=== PATIENT | female | born 1990 | race Caucasian/White ===

== ENCOUNTER 2018-05-11 23:23 | Emergency (ER) | payer OTHER ==
[~2018-05-11] VITALS: Ht 162.6 cm; Wt 58.5 kg
[2018-05-11 23:30] VITALS: BP 119/68
--- NOTE | 2018-05-11 23:30 | NUR ---
PT DOM TO ED BED 4 FOR BEDSIDE TRIAGE, PER EMS FIRE CALLED [facility] PATIENT WAS FOUND OUTSIDE A [facility] STORE SOB THIS EVENING APPROX 1 HR AGO. ON ARRIVAL PT A/OX4, MARTINS, 98% ON RA. CLB WITH NO EVIDENCE OF LABORED BREATHING. DENIES CP OR SOB AT THIS TIME. AMBULATES WITH STEADY GAIT WITHOUT ASSISTANCE. HOOKED UP TO FULL MONITOR WILL CONTINUE TO WATCH CLOSELY. HX: CKD, DEPRESSION, METHAMPHETAMINE ABUSE MEDS: DEPOPROVERA
--- NOTE | 2018-05-11 23:41 | NUR ---
PT ON BED IN NAD ON MONITOR, URINE OBTAINED.
[2018-05-12] MEDS ORDERED: LORazepam 2 MG/ML VIAL IM/IVP ONE (00:25)
[2018-05-12] MEDS ORDERED: diphenhydrAMINE 50 MG/ML VIAL IM ONE (00:25)
[2018-05-12] MEDS ORDERED: HALOPERIDOL IM 5 MG/ML VIAL IM ONE (00:25)
--- NOTE | 2018-05-12 00:52 | NUR ---
PT RESTLESS IN BED, MEDICATION GIVEN PER MD. VITALS STABLE.
[2018-05-12 00:57] LABS: BASOPHILS % (AUTO) 0.3 % (0.0-2.0); EOSINOPHILS # (AUTO) 0.1 K/uL (0-0.4); HEMATOCRIT 36.4 % (36-48); HEMOGLOBIN 12.1 g/dL (12.0-16.0); LYMPHOCYTES # (AUTO) 1.7 K/uL (2.5-16.5); LYMPHOCYTES % (AUTO) 16.7 % (20.5-51.1); MEAN CORPUSCULAR HEMOGLOBIN 29 pg (27-31); MEAN CORPUSCULAR HGB CONC 33 g/dL (33-37); MEAN CORPUSCULAR VOLUME 87.9 fL (80-94); MONOCYTES # (AUTO) 1.1 K/uL (0.8-1.0); MONOCYTES % (AUTO) 10.8 % (1.7-9.3); NEUTROPHILS # (AUTO) 7.2 K/uL (1.8-7.7); NEUTROPHILS % (AUTO) 71.2 % (42.2-75.2); PLATELET COUNT (AUTO) 205 K/uL (140-450); RED BLOOD CELL COUNT(AUTO) 4.14 MIL/uL (4.20-5.40); RED CELL DISTRIBUTION WIDTH 13.4 % (11.6-13.7); WHITE BLOOD COUNT (AUTO) 10.2 K/uL (4.8-10.8)
[2018-05-12 01:21] LABS: ALBUMIN 3.7 g/dL (3.4-5.0); ANION GAP 9.6 (8-16); ASPARTATE AMINOTRANSFERASE 32 U/L (15-37); CARBON DIOXIDE 28.9 mmol/L (21-32); CHLORIDE 101 mmol/L (98-107); CREATININE 0.8 mg/dL (0.6-1.3); GFR ARICAN-AMERICAN 112 mL/min (>90); GLUCOSE 120 mg/dL (74-106); POTASSIUM 3.5 mmol/L (3.5-5.1); SODIUM SERUM 136 mmol/L (136-145); TOTAL BILIRUBIN 0.5 mg/dL (0.0-1.0); UREA NITROGEN, BLOOD 5 mg/dL (7-18)
[2018-05-12 01:22] LABS: BARBITURATE, URINE NEG. ng/ml (NEG <=200); BENZODIAZEPINE, URINE NEG. ng/mL (NEG <=200); CANNABINOID, URINE NEG. ng/mL (NEG <=50); COCAINE, URINE NEG. ng/mL (NEG <=300); OPIATE, URINE POS. ng/mL (NEG <=2000); PHENCYCLIDINE SCREEN,URINE NEG. ng/mL (NEG <=25)
[2018-05-12 01:39] LABS: CKMB RELATIVE INDEX 2.1 (0.0-2.5); CREATINE KINASE MB 8.8 ng/mL (0-3.6)
[2018-05-12 01:52] LABS: BLOOD, URINE LARGE (NEGATIVE); LEUKOCYTE ESTERASE ,URINE NEGATIVE (NEGATIVE); NITRITE, URINE NEGATIVE (NEGATIVE); UGLUCOSE NEGATIVE (NEGATIVE)
[2018-05-12 01:53] LABS: APPEARANCE,URINE CLOUDY (CLEAR); COLOR,URINE YELLOW (YELLOW)
[2018-05-12 01:57] LABS: BILIRUBIN,URINE SMALL (NEGATIVE); RBC,URINE TOO NUMEROUS TO COUN /HPF (0-5); WBC,URINE 0-5 (RARE) /HPF (0-5)
--- NOTE | 2018-05-12 02:30 | NUR ---
PT IS SLEEPING, VITALS STABLE
--- NOTE | 2018-05-12 05:58 | NUR ---
TRIED TO DC PT. PT WAS NOT EASY TO AROUSE. ROAD TEST FAILED. WAS NOT ABLE TO AMBULATE WITHOUT ASSISTANCE.
--- NOTE | 2018-05-12 07:23 | NUR ---
GAVE REPORT TO CHACE RN, PT VITALS STABLE.
--- NOTE | 2018-05-12 07:23 | NUR ---
REPORT RECEIVED FROM EDMUND HENDRICKS. PT ASLEEP ON [facility] AT THIS TIME W/ VSS, SAFETY PRECAUTIONS IN PLACE. WILL CONTINUE TO MONITOR.
--- NOTE | 2018-05-12 08:30 | NUR ---
PT ASLEEP ON [facility] AT THIS TIME W/ VSS, SAFETY PRECAUTIONS IN PLACE. WILL CONTINUE TO MONITOR.
--- NOTE | 2018-05-12 09:41 | NUR ---
PT ASLEEP ON [facility] AT THIS TIME W/ VSS, SAFETY PRECAUTIONS IN PLACE. WILL CONTINUE TO MONITOR.
--- NOTE | 2018-05-12 09:56 | NUR ---
pt is unable to remain awake long enough to verbalize discharge teaching. Pt appears lethargic, but is aaox4. bellows charger assembler and er md notified. will continue to re-evaluate pt.
--- NOTE | 2018-05-12 10:55 | NUR ---
PT CONTINUE TO SLEEP AT THIS TIME. WILL NOT REMAIN AWAKE LONG ENOUGH TO TEST GAIT. CHARGE NURSE NOTIFIED.
--- NOTE | 2018-05-12 11:30 | NUR ---
pt awake and eating at this time. pt needs met. safety precautions in place. will continue to monitor.
--- NOTE | 2018-05-12 11:56 | NUR ---
CHARGE NURSE AT THE BEDSIDE AT THIS TIME TO ASSIST IN ASSESSING PT GAIT AND ABILITY TO LEAVE ER. PT AWAKE AND AAOX4. RECEIEVD A BUS PASS PER PT REQUEST. PT HAS STEADY GAIT AT THIS TIME. PT IS INFORMED THAT IT IS TIME TO LEAVE ER. PT DEMONSTRATED UNDERSTANDING OF D/C TEACHING AND DECLINED HOMELESS RESOURCE PACKET.
[2018-05-12 12:25] VITALS: BP 126/88
--- NOTE | 2018-05-12 12:25 | NUR ---
Patient discharged with v/s stable. Written and verbal after care instructions given and explained. Patient verbalized understanding. Ambulatory with steady gait. All questions addressed prior to discharge. Advised to follow up with PMD. Pt given homeless resource packet but declines. Pt given snacks and a clean shirt.
== END 2018-05-12 14:48 | disposition home or self-care (01) ==
LOC: MED 23:23
DX: R41.82 Altered mental status, unspecified (principal); F43.9 Reaction to severe stress, unspecified
CPT/HCPCS: 36415; 80053; 80305; 81001; 81025; 82550; 82553; 82948; 85025; 96372; 96374; 99284; G0482; J1200; J1630; J2060

== ENCOUNTER 2018-10-02 11:58 | Emergency (ER) | payer OTHER ==
[~2018-10-02] VITALS: Ht 165.1 cm; Wt 43.1 kg
[2018-10-02 11:58] VITALS: BP 184/135
--- NOTE | 2018-10-02 12:00 | NUR ---
PT BIBA BLS TO BED 9
[2018-10-02] MEDS ORDERED: NACL 0.9% 1,000 ML IV ONE (12:46)
[2018-10-02] MEDS ORDERED: LORazepam 2 MG/ML VIAL IVP ONE (12:50)
[2018-10-02] MEDS ORDERED: diphenhydrAMINE 50 MG/ML VIAL IVP ONE (12:50)
--- NOTE | 2018-10-02 13:05 | NUR ---
PATIENT PRESENTS TO ED WITH brought in by ems from [facility] [place]---diane louiechurch called 911 when noticed pt laying on sidewalk--- no apparent injury/trauma noted, pt unable to stay still, twitching, rocking back and foward, clear excessive speech, will not answer questions at this time. pupils reactive and equal to light stimuli. ems reported pt requested [facility] . DENIES N/V/D; SKIN IS pale cool was had wet clothing; awake will not answer questions; repetitive raced speech ; LUNGS CLEAR BL; HR EVEN AND tachy; PT DENIES ANY FEVER, CP, SOB, OR COUGH AT THIS TIME; PATIENT STATES PAIN OF 0/10 AT THIS TIME; VSS; PATIENT POSITIONED FOR COMFORT; HOB ELEVATED; BEDRAILS UP X2; BED DOWN. ER MD MADE AWARE OF PT STATUS.
[2018-10-02 13:19] LABS: BASOPHILS # (AUTO) 0.1 K/uL (0.00-0.22); BASOPHILS % (AUTO) 0.5 % (0.0-2.0); EOSINOPHILS # (AUTO) 0.1 K/uL (0-0.4); HEMATOCRIT 42.7 % (36-48); HEMOGLOBIN 13.7 g/dL (12.0-16.0); LYMPHOCYTES # (AUTO) 3.8 K/uL (2.5-16.5); LYMPHOCYTES % (AUTO) 28.1 % (20.5-51.1); MEAN CORPUSCULAR HEMOGLOBIN 28 pg (27-31); MEAN CORPUSCULAR HGB CONC 32 g/dL (33-37); MEAN CORPUSCULAR VOLUME 87.5 fL (80-94); MONOCYTES # (AUTO) 0.7 K/uL (0.8-1.0); MONOCYTES % (AUTO) 4.9 % (1.7-9.3); NEUTROPHILS # (AUTO) 8.9 K/uL (1.8-7.7); NEUTROPHILS % (AUTO) 65.5 % (42.2-75.2); PLATELET COUNT (AUTO) 284 K/uL (140-450); RED BLOOD CELL COUNT(AUTO) 4.87 MIL/uL (4.20-5.40); RED CELL DISTRIBUTION WIDTH 14.7 % (11.6-13.7); WHITE BLOOD COUNT (AUTO) 13.6 K/uL (4.8-10.8)
[2018-10-02 13:28] LABS: BARBITURATE, URINE NEG. ng/ml (NEG <=200); BENZODIAZEPINE, URINE NEG. ng/mL (NEG <=200); CANNABINOID, URINE NEG. ng/mL (NEG <=50); COCAINE, URINE NEG. ng/mL (NEG <=300); OPIATE, URINE POS. ng/mL (NEG <=2000); PHENCYCLIDINE SCREEN,URINE NEG. ng/mL (NEG <=25)
[2018-10-02 13:30] LABS: CARBON DIOXIDE 30.8 mmol/L (21-32); CHLORIDE 103 mmol/L (98-107); CREATININE 0.9 mg/dL (0.6-1.3); GFR ARICAN-AMERICAN 97 mL/min (>90); GLUCOSE 121 mg/dL (74-106); POTASSIUM 3.8 mmol/L (3.5-5.1); SODIUM SERUM 143 mmol/L (136-145); UREA NITROGEN, BLOOD 14 mg/dL (7-18)
[2018-10-02 13:37] LABS: ALBUMIN 4.1 g/dL (3.4-5.0); ASPARTATE AMINOTRANSFERASE 35 U/L (15-37); TOTAL BILIRUBIN 0.6 mg/dL (0.0-1.0)
[2018-10-02 13:41] LABS: APPEARANCE,URINE CLEAR (CLEAR); BILIRUBIN,URINE NEGATIVE (NEGATIVE); BLOOD, URINE NEGATIVE (NEGATIVE); COLOR,URINE YELLOW (YELLOW); LEUKOCYTE ESTERASE ,URINE NEGATIVE (NEGATIVE); NITRITE, URINE NEGATIVE (NEGATIVE); UGLUCOSE NEGATIVE (NEGATIVE)
[2018-10-02 13:43] LABS: RBC,URINE 0-5 (RARE) /HPF (0-5); WBC,URINE 0-5 (RARE) /HPF (0-5)
--- NOTE | 2018-10-02 14:02 | NUR ---
PATIENT CONTINUES TO ATTEMPT TO LEAVE ER, TAKE OFF LEADS AND IV SALINE LOCK.
--- NOTE | 2018-10-02 15:13 | NUR ---
patient provided with food and juice and socks
--- NOTE | 2018-10-02 15:32 | NUR ---
patient provided with clothes, more food/juice, community resource packet.
--- NOTE | 2018-10-02 15:50 | NUR ---
patient exited er via steady gait.
--- NOTE | 2018-10-02 15:55 | NUR ---
PT LEFT WITHOUT DISCHARGE PAPERWORK AT THIS TIME
== END 2018-10-02 15:55 | disposition left against medical advice (07) ==
LOC: MED 11:58
DX: F19.10 Other psychoactive substance abuse, uncomplicated (principal); G24.09 Other drug induced dystonia; J45.909 Unspecified asthma, uncomplicated; I10 Essential (primary) hypertension; Z91.14 Patient's other noncompliance with medication regimen
CPT/HCPCS: 36415; 80053; 80305; 81001; 81025; 84484; 85025; 96361; 96374; 96375; 99283; G0482; J1200; J2060; J7030

== ENCOUNTER 2019-07-25 15:03 | Emergency (ER) | payer OTHER ==
[~2019-07-25] VITALS: Ht 157.5 cm; Wt 52.2 kg
--- NOTE | 2019-07-25 15:12 | NUR ---
ATTEMPTED TO TRIAGE PATIENT, PT LEFT FACILITY PRIOR TO BEING TRAIGED.
[2019-10-12] MEDS ORDERED: ASPI-1884 PO (15:05)
[2019-10-12] MEDS ORDERED: LOV40I SUBQ (15:05)
== END 2019-07-25 15:12 | disposition left against medical advice (07) ==
LOC: MED 15:03
DX: Z53.21 Procedure and treatment not carried out due to patient leaving prior to being seen by health care provider (principal)

== ENCOUNTER 2019-10-03 00:38 | Inpatient (IN) | payer MEDICAID, OTHER ==
[~2019-10-03] VITALS: Ht 160 cm; Wt 45.4 kg
[2019-10-03 00:52] VITALS: BP 163/100
--- NOTE | 2019-10-03 00:52 | NUR ---
28 Y/O FEMALEBIBA WITH REPORTS OF BEING FOUND ON THE STREET STATING SHE COULD NOT WALK OR STAND. STATE THE PAIN STARTS IN HER LEFT HIP AND GOES DOWN HER WHOLE LEG. PAIN OF 9/10.PATIENT ACTING IRRATICALLY DENIES DRUG USE. ERMD MADE AWARE OF STATUS. SIDE RAILSX1 PMH:ASTHMA RX:DENIES NKDA
[2019-10-03] MEDS ORDERED: IBUPROFEN 800 MG TAB PO ONE (01:00)
[2019-10-03] MEDS ORDERED: MORPHINE SULFATE 4 MG/ML SYR IVP ONE (01:50)
[2019-10-03] MEDS ORDERED: NACL 0.9% 1,000 ML IV ONE (01:50)
[2019-10-03] MEDS ORDERED: ONDANSETRON 4 MG/2 ML VIAL IVP ONE (01:50)
--- NOTE | 2019-10-03 02:00 | NUR ---
EMT PERFORMING EKG AT BEDSIDE.
[2019-10-03 02:12] LABS: BASOPHILS # (AUTO) 0.1 K/uL (0.00-0.22); BASOPHILS % (AUTO) 0.5 % (0.0-2.0); EOSINOPHILS # (AUTO) 0.1 K/uL (0-0.4); EOSINOPHILS % (AUTO) 0.9 % (0.0-4.0); HEMATOCRIT 37.1 % (36-48); HEMOGLOBIN 12.2 g/dL (12.0-16.0); LYMPHOCYTES # (AUTO) 1.4 K/uL (2.5-16.5); LYMPHOCYTES % (AUTO) 12.8 % (20.5-51.1); MEAN CORPUSCULAR HEMOGLOBIN 29 pg (27-31); MEAN CORPUSCULAR HGB CONC 33 g/dL (33-37); MEAN CORPUSCULAR VOLUME 88.4 fL (80-94); MONOCYTES # (AUTO) 0.6 K/uL (0.8-1.0); NEUTROPHILS # (AUTO) 8.6 K/uL (1.8-7.7); NEUTROPHILS % (AUTO) 79.8 % (42.2-75.2); PLATELET COUNT (AUTO) 293 K/uL (140-450); RED BLOOD CELL COUNT(AUTO) 4.19 MIL/uL (4.20-5.40); WHITE BLOOD COUNT (AUTO) 10.8 K/uL (4.8-10.8)
[2019-10-03] MEDS ORDERED: hydrALAZINE 20 MG/ML VIAL IVP ONE (02:20)
[2019-10-03 02:24] LABS: ANION GAP 14.5 (8-16); CARBON DIOXIDE 26.7 mmol/L (21-32); CHLORIDE 102 mmol/L (98-107); CREATININE 0.8 mg/dL (0.6-1.3); GFR ARICAN-AMERICAN 111 mL/min (>90); GLUCOSE 142 mg/dL (74-106); POTASSIUM 4.2 mmol/L (3.5-5.1); SODIUM SERUM 139 mmol/L (136-145); UREA NITROGEN, BLOOD 12 mg/dL (7-18)
[2019-10-03] MEDS ORDERED: MORPHINE SULFATE 2 MG/ML SYR IVP PRN (02:25)
[2019-10-03] MEDS ORDERED: ZOLPIDEM 5 MG TAB PO PRN (02:25)
[2019-10-03] MEDS ORDERED: ONDANSETRON 4 MG/2 ML VIAL IM/IVP PRN (02:25)
[2019-10-03] MEDS ORDERED: ACETAMINOPHEN 325 MG TAB PO PRN (02:25)
[2019-10-03] MEDS ORDERED: DOCUSATE SODIUM 100 MG GELCAP PO PRN (02:25)
[2019-10-03 02:29] LABS: ALBUMIN 3.6 g/dL (3.4-5.0); ASPARTATE AMINOTRANSFERASE 67 U/L (15-37); TOTAL BILIRUBIN 0.4 mg/dL (0.0-1.0)
[2019-10-03] MEDS ORDERED: ALBUTEROL SULFATE/IPRATROPIU 3 ML SOL IH PRN (02:35)
[2019-10-03 02:53] LABS: APPEARANCE,URINE CLOUDY (CLEAR); BILIRUBIN,URINE NEGATIVE (NEGATIVE); BLOOD, URINE NEGATIVE (NEGATIVE); COLOR,URINE YELLOW (YELLOW); LEUKOCYTE ESTERASE ,URINE NEGATIVE (NEGATIVE); NITRITE, URINE NEGATIVE (NEGATIVE); UGLUCOSE NEGATIVE (NEGATIVE)
[2019-10-03] MEDS ORDERED: fentaNYL 0.05 MG/HR PATCH TD SCH (03:05)
[2019-10-03 03:06] LABS: PROTHROMBIN TIME 9.2 secs (10.8-13.4)
[2019-10-03] MEDS ORDERED: fentaNYL 0.05 MG/ML VIAL IVP ONE (03:10)
[2019-10-03 03:12] LABS: BARBITURATE, URINE NEG. ng/ml (NEG <=200); BENZODIAZEPINE, URINE NEG. ng/mL (NEG <=200); CANNABINOID, URINE NEG. ng/mL (NEG <=50); COCAINE, URINE NEG. ng/mL (NEG <=300); OPIATE, URINE POS. ng/mL (NEG <=2000); PHENCYCLIDINE SCREEN,URINE NEG. ng/mL (NEG <=25)
--- NOTE | 2019-10-03 03:18 | NUR ---
PULLED SUBLIMAZE 2ML VIAL; WASTED 0.05MG/1ML WITH EDMUND CARRION. ADMINISTERED 0.05MG/1ML OF SUBLIMAZE TO PATIENT
[2019-10-03 03:35] VITALS: BP 143/87
--- NOTE | 2019-10-03 03:35 | NUR ---
RECEIVED BEDSIDE REPORT FROM ED NURSE JEROD. PATIENT ARRIVED VIA GURNEY. PATIENT IS NOT AMBULATORY. PATIENT IS AO 2-3. ON ROOM AIR. NO SOB OR DISTRESS NOTED. IV ACCESS ON LEFT FOREARM 20 GAUGE, PATENT AND INTACT. HERNANDEZ CATHETER IN PLACE. INITIAL ASSESSMENT DONE. INITIAL VITAL SIGNS TAKEN. MRSA SWAB DONE AND SENT TO LAB. BOARD UPDATED. CALL LIGHT WITHIN PATIENT REACH. WILL CONTINUE TO MONITOR PATIENT.
--- NOTE | 2019-10-03 03:35 | NUR ---
Admited to TELE. Will go to room 124-A. Belongings list completed. Report to EDMUND RUTHERFORD.
[2019-10-03 03:39] LABS: CHOL/HDL RATIO 3.1 (1-4.5); PHOSPHORUS 3.1 mg/dL (2.5-4.9); THYROID STIMULATING HORMONE 0.42 uIU/mL (0.34-3.74)
[2019-10-03] MEDS: NACL 0.9% 1,000 ML IV SCH (04:11)
[2019-10-03] MEDS: LORazepam 2 MG/ML VIAL IM/IVP PRN ×4 (04:11→20:57)
--- NOTE | 2019-10-03 04:17 | NUR ---
ATTEMPTED TO ASK PATIENT ADMISSION QUESTIONS. PATIENT WAS MUMBLING AND REPLYING YES TO ALL QUESTIONS BUT NOT ABLE TO JUSTIFY HER ANSWERS.
--- NOTE | 2019-10-03 07:19 | NUR ---
PATIENT IN STABLE CONDITION. CALL LIGHT WITHIN PATIENT REACH. WILL ENDORSE TO AM SHIFT NURSE FOR CONTINUITY OF CARE.
--- NOTE | 2019-10-03 07:20 | NUR ---
RECEIVED BEDSIDE REPORT FROM SHOPPER NURSE. PATIENT IS AWAKE, ALERT AND ORIENTEDX1. NO SIGNS OF DISTRESS ON RA. SKIN IS INTACT. IV ON L WRIST 22G. CLEAN, DRY AND INTACT. TELE MONITOR IN PLACE. HERNANDEZ CATH IN PLACE. BED IN LOW POSITION. CALL LIGHT WITHIN REACH. WILL CONTINUE TO MONITOR
[2019-10-03 08:00] VITALS: BP 138/93
[2019-10-03 08:00] LABS: BASOPHILS # (AUTO) 0.1 K/uL (0.00-0.22); BASOPHILS % (AUTO) 0.7 % (0.0-2.0); EOSINOPHILS # (AUTO) 0.1 K/uL (0-0.4); EOSINOPHILS % (AUTO) 0.6 % (0.0-4.0); HEMATOCRIT 38.4 % (36-48); HEMOGLOBIN 12.6 g/dL (12.0-16.0); LYMPHOCYTES # (AUTO) 1.8 K/uL (2.5-16.5); LYMPHOCYTES % (AUTO) 16.3 % (20.5-51.1); MEAN CORPUSCULAR HEMOGLOBIN 29 pg (27-31); MEAN CORPUSCULAR HGB CONC 33 g/dL (33-37); MEAN CORPUSCULAR VOLUME 87.8 fL (80-94); MONOCYTES # (AUTO) 0.9 K/uL (0.8-1.0); MONOCYTES % (AUTO) 8.2 % (1.7-9.3); NEUTROPHILS # (AUTO) 8.4 K/uL (1.8-7.7); NEUTROPHILS % (AUTO) 74.2 % (42.2-75.2); PLATELET COUNT (AUTO) 296 K/uL (140-450); RED BLOOD CELL COUNT(AUTO) 4.37 MIL/uL (4.20-5.40); RED CELL DISTRIBUTION WIDTH 16.6 % (11.6-13.7); WHITE BLOOD COUNT (AUTO) 11.3 K/uL (4.8-10.8)
--- NOTE | 2019-10-03 08:30 | NUR ---
ADMINISTERED MEDS AND PRN PAIN MED. PATIENT TOLERATED WELL. EDUCATED ON SIDE EFFECTS. NO SIGNS OF DISTRESS. WILL CONTINUE TO MONITOR
--- NOTE | 2019-10-03 08:46 | NUR ---
PT HAS BEEN SCREENED AND CATEGORIZED HIGH NUTRITION RISK. PT WILL BE SEEN WITHIN 1-2 DAYS OF ADMISSION. 10/03/19-10/04/[address]
[2019-10-03] MEDS: ALBUTEROL SULFATE/IPRATROPIU 3 ML SOL IH SCH ×3 (08:50→20:29)
[2019-10-03] MEDS ORDERED: METOPROLOL 25 MG TAB PO SCH (09:00)
[2019-10-03] MEDS ORDERED: amLODIPine 5 MG TAB PO SCH (09:00)
[2019-10-03] MEDS: HYDROcodone/APAP 5/325 MG 1 TAB TAB PO PRN ×2 (10:43→18:58)
--- NOTE | 2019-10-03 10:43 | NUR ---
ADMINISTERED PRN PAIN MED. EDUCATED ON SIDE EFFECTS. WILL CONTINUE TO MONITOR
[2019-10-03 11:32] LABS: ANION GAP 13.7 (8-16); CARBON DIOXIDE 25.3 mmol/L (21-32); CREATININE 0.5 mg/dL (0.6-1.3)
[2019-10-03 11:35] LABS: MAGNESIUM 1.9 mg/dL (1.8-2.4); PHOSPHORUS 3.1 mg/dL (2.5-4.9)
[2019-10-03 12:00] VITALS: BP 159/103
[2019-10-03] MEDS: MORPHINE SULFATE 2 MG/ML SYR IVP PRN ×2 (12:04→17:25)
--- NOTE | 2019-10-03 12:04 | NUR ---
ADMINISTERED PRN PAIN MED. PATIENT TOLERATING WELL. EDUCATED ON SIDE EFFECTS. WILL CONTINUE TO MONITOR
--- NOTE | 2019-10-03 13:07 | NUR ---
Faxed clinicals and orders to [facility] and will review the case, no bed at this time. Also faxed clinical to [facility] and spoke to Channel and no beds and will review. Faxed clinical to [facility]. Will also fax to [facility].
--- NOTE | 2019-10-03 13:19 | NUR ---
Spoke to Golden at [facility] Transfer center [phone] and Golden will fax the 3 pages for us to fill out and fax back with face sheet.
--- NOTE | 2019-10-03 14:40 | NUR ---
PATIENT LAYING IN BED. NO DISTRESS. WILL CONTINUE TO MONITOR
--- NOTE | 2019-10-03 15:40 | NUR ---
3 pages from [facility] filled out and faxed to PAULINA with H&P and face sheet regarding higher level of care transfer. Awaiting for call back.
--- NOTE | 2019-10-03 15:51 | NUR ---
PATIENT IS SLEEPING. NO SIGNS OF DISTRESS. WILL CONTINUE TO MONITOR THE PATIENT
[2019-10-03 16:00] VITALS: BP 150/106
--- NOTE | 2019-10-03 17:29 | NUR ---
PATIENT REMOVED IV, TIP INTACT. NEW IV ON L FA 22G. ADMINISTERED PRN PAIN MED. PATIENT TOLERATED WELL. EDUCATED ON SIDE EFFECTS.
--- NOTE | 2019-10-03 18:22 | NUR ---
PATIENT IS SLEEPING. WILL CONTINUE TO MONITOR
--- NOTE | 2019-10-03 19:20 | NUR ---
GAVE BEDSIDE REPORT TO FIELD CONTROL INSPECTOR NURSE. PATIENT ENDORSED IN STABLE CONDITION
--- NOTE | 2019-10-03 19:25 | NUR ---
RECEIVED PT FROM CLAUDIA SHAFFER PT AAOX2; ON TELEMETRY SR;, SKIN IS INTACT PT IS AASOX2 IV O;N LEFT FA INFUSING WELLCALL LIGHT WITHIN REACH INITIAL ASSESSMENT DONE
[2019-10-03 20:00] VITALS: BP 151/100
--- NOTE | 2019-10-03 20:00 | NUR ---
PT ON HITCHCOCK TRACTION 6 POUNDS ON LEFT LE , ON TELMETRY ST
[2019-10-03] MEDS: METOPROLOL 25 MG TAB PO SCH (20:55)
--- NOTE | 2019-10-03 23:00 | NUR ---
AFTER ATIVEN GIVEN FOR ANXIOUS PT IS SLEEPING WELLL NOT DISTRESS NOTED IV ON LEFT FA INFUSINGH WELL
[2019-10-04] VITALS (7 sets, daily range): BP systolic 130–145; BP diastolic 97–103
[2019-10-04] MEDS: LORazepam 2 MG/ML VIAL IM/IVP PRN (01:49)
--- NOTE | 2019-10-04 03:00 | NUR ---
PT HAS BEEN MO;;NITOING CLOSE ON HITCHCOCK TRACTION ON LEFT LOWER LEG , ON TELMETRY SR
--- NOTE | 2019-10-04 05:00 | NUR ---
SPONGE BATH GIVEN LINEN CHANGED PT AAOX2 DROWSY ASKING FOR FOOD ALL TIME
[2019-10-04] MEDS: NACL 0.9% 1,000 ML IV SCH ×2 (06:00→14:03)
--- NOTE | 2019-10-04 07:03 | NUR ---
PT WILL BE ENDORSED TO DAY SHIFT NURSED FOR CONTINUE OF CARE
--- NOTE | 2019-10-04 07:20 | NUR ---
RECEIVED BEDSIDE REPORT FROM DRY BOX TENDER NURSE. PT IS AWAKE AND MOANING/SCREAMING, ASKING FOR FOOD AND JUICE. PT APPEARS TO BE IN DISCOMFORT. PT JUST HAD A LARGE SOLID BM. HITCHCOCK'S TRACTION 6 LBS IS IN PACE ON THE LLE. IV SITE L FA 22 G, INFUSING NS 60 ML/HR. SKIN IS INTACT. FALL PRECAUTIONS IN PLACE. CALL LIGHT IS WITHIN REACH. WILL CONTINUE TO MONITOR.
[2019-10-04] MEDS: ALBUTEROL SULFATE/IPRATROPIU 3 ML SOL IH SCH ×3 (07:53→19:10)
--- NOTE | 2019-10-04 08:02 | NUR ---
RECEIVED PATIENT ON ROOM AIR, PULSE OX SAT 97%. SCHEDULED BREATHING TREATMENT ADMINISTERED. TOLERATED TX WELL WITHOUT ADVERSE SIDE EFFECTS. NO ACUTE RESPIRATORY DISTRESS NOTED AT THIS TIME. WILL CONTINUE TO MONITOR.
[2019-10-04] MEDS: MORPHINE SULFATE 2 MG/ML SYR IVP PRN ×4 (08:37→23:09)
[2019-10-04] MEDS: METOPROLOL 25 MG TAB PO SCH (08:37)
[2019-10-04 08:38] LABS: BASOPHILS # (AUTO) 0.1 K/uL (0.00-0.22); BASOPHILS % (AUTO) 0.8 % (0.0-2.0); EOSINOPHILS # (AUTO) 0.1 K/uL (0-0.4); EOSINOPHILS % (AUTO) 0.8 % (0.0-4.0); HEMATOCRIT 43.4 % (36-48); HEMOGLOBIN 14.4 g/dL (12.0-16.0); LYMPHOCYTES # (AUTO) 2.3 K/uL (2.5-16.5); LYMPHOCYTES % (AUTO) 21.6 % (20.5-51.1); MEAN CORPUSCULAR HEMOGLOBIN 30 pg (27-31); MEAN CORPUSCULAR HGB CONC 33 g/dL (33-37); MEAN CORPUSCULAR VOLUME 88.9 fL (80-94); MONOCYTES # (AUTO) 0.8 K/uL (0.8-1.0); MONOCYTES % (AUTO) 7.4 % (1.7-9.3); NEUTROPHILS # (AUTO) 7.4 K/uL (1.8-7.7); NEUTROPHILS % (AUTO) 69.4 % (42.2-75.2); PLATELET COUNT (AUTO) 357 K/uL (140-450); RED BLOOD CELL COUNT(AUTO) 4.88 MIL/uL (4.20-5.40); RED CELL DISTRIBUTION WIDTH 16.4 % (11.6-13.7); WHITE BLOOD COUNT (AUTO) 10.7 K/uL (4.8-10.8)
--- NOTE | 2019-10-04 08:49 | NUR ---
AM MEDS ADMINISTERED, PT TOLERATED WELL. PT C/O 07/12 LLE PAIN, PRN IV MORPHINE ADMINISTERED. WILL REASSESS WITHIN AN HOUR.
[2019-10-04 09:02] LABS: ANION GAP 15.3 (8-16); CARBON DIOXIDE 24.1 mmol/L (21-32); CREATININE 0.6 mg/dL (0.6-1.3); POTASSIUM 4.4 mmol/L (3.5-5.1)
[2019-10-04 09:07] LABS: PHOSPHORUS 3.3 mg/dL (2.5-4.9)
--- NOTE | 2019-10-04 09:46 | NUR ---
PT CLEANED AND CHANGED. BED LINENS CHANGED. TOLERATED WELL. LLE HITCHCOCK'S TRACTION IS INTACT.
--- NOTE | 2019-10-04 10:11 | NUR ---
DISCHARGE PLANNING: PER ANSWERING SERVICE AT [facility], SHE WILL TRANSFER ME TO [facility]. NO ANSWER. LEFT MESSAGE PER [place] AT [facility] TRANSFER [place], NO BEDS AT THIS TIME. SHE ALSO STATED THAT THEY ARE IN LEVEL 2. WILL CALL ME BACK FOR A BED AVAILABILITY UPDATE IN 4 HOURS. PER NANCI AT [facility] [phone], WILL REVIEW THE CASE AND WILL GIVE ME A CALL BACK. Addendum: 10/04/19 at 1424 by Nevin Modi CM 1310: PER EVELINE ARTIFICIAL INTELLIGENCE SPECIALIST, PATIENT IS ON [facility] AND PROVIDED ME WITH AN UPDATED FACE SHEET. SHE ALSO STATED HAD BEEN UNCOOPERATIVE WITH SOME QUESTIONS. REFERRAL SENT TO [facility] WITH THE UPDATED FACE SHEET. Addendum: 10/04/19 at 1424 by Nevin Modi CM RECEIVED A CALL FROM LITA RAHMAN [facility] TRANSFER CENTER CONFIRMING THAT THEY RECEIVED THE REFERRAL. HE STATED HE WILL REVIEW THE CASE AND WILL GIVE ME A CALL BACK.
--- NOTE | 2019-10-04 11:04 | NUR ---
PT IS COMFORTABLY ASLEEP AT THIS TIME. IVF IS INFUSING WELL. NO S/S OF DISTRESS. HITCHCOCK'S TRACTION IN PLACE AND INTACT. WILL CONTINUE TO MONITOR.
--- NOTE | 2019-10-04 11:32 | NUR ---
PT IS AWAKE AND IS ASKING FOR SNACKS. KENROY CRACKERS AND MILK PROVIDED PER REQUEST.
--- NOTE | 2019-10-04 11:59 | NUR ---
CHECKED PT'S BP TWICE, 130/103 AND 140/101. DR MERRITT NOTIFIED, SAYS HE WILL ADJUST PT'S BP MEDS.
[2019-10-04] MEDS ORDERED: LORazepam 2 MG/ML VIAL IM/IVP PRN (13:50)
--- NOTE | 2019-10-04 14:01 | NUR ---
10/04/19 RD INITIAL ASSESSMENT COMPLETED PLEASE REFER TO NUTRITION ASSESSMENT UNDER CARE ACTIVITY FOR ESTIMATED NUTRITIONAL NEEDS. 1. CONTINUE REGULAR DIET TOLERATED 2. RD TO FOLLOW-UP 5-7 DAYS, LOW RISK JUAN PABLO FERNANDEZ RD
--- NOTE | 2019-10-04 14:15 | NUR ---
PATIENT REFUSING TO TAKE BREATHING TREATMENT UNTIL AFTER SHE HAS FINISHED EATING HER MILK AND COOKIES. NO RESPIRATORY DISTRESS NOTED. WILL RETURN AT LATER TIME TO ADMINISTER TREATMENT.
--- NOTE | 2019-10-04 14:35 | NUR ---
PATIENT SLEEPING. BREATHING TREATMENT NOT ADMINISTERED. NO ACUTE RESPIRATORY DISTRESS NOTED. WILL CONTINUE TO MONITOR.
--- NOTE | 2019-10-04 15:21 | NUR ---
GOT A CALL FROM [facility], NO BEDS AVAILABLE FOR PT AT THIS TIME.
--- NOTE | 2019-10-04 19:25 | NUR ---
ENDORSED PT TO MANAGER CLINICAL INFORMATICS NURSE IN STABLE CONDITION.
--- NOTE | 2019-10-04 19:30 | NUR ---
RECEIVED PT FROM BIANCA SHAFFER PT ON BED REST ON LEFT LOWER LEG ON 6 POUNDS HITCHCOCK TRACTION FOR FRACTURE ON LEFT HIP, PT AAOX2 , IV ;ON LEFT FA GAUGE # 22 INFUSING WELL TKO , PT ON TELEMETRY ST INITIAL ASSESSMENT DONE
--- NOTE | 2019-10-04 20:15 | NUR ---
LITA FROM [facility] CALL TO NOTIFY BED AVAILABLE FOR THIS PT ON TOWER 5 BED 1 TEL [phone] AND THE RESIDENT DOCTOR LUIS WAS NOTIFY
[2019-10-04] MEDS ORDERED: ZOLPIDEM 5 MG TAB PO SCH (21:00)
[2019-10-04] MEDS ORDERED: METOPROLOL 25 MG TAB PO SCH (21:00)
[2019-10-04] MEDS ORDERED: METO25TA PO (21:19)
--- NOTE | 2019-10-04 23:15 | NUR ---
REPORT GIVEN TO CHRISTY SHAFFER FROM [facility]
--- NOTE | 2019-10-05 00:39 | NUR ---
[facility] IS HERE TO CHIEF SOLUTION ARCHITECT THE PT ALL DISCHARGE PROTOCOL COMPLETE, VSS, PT IS GOING TO [facility] TOWER 5 AND ROOM #1
== END 2019-10-05 00:46 | disposition short-term general hospital (02) | DRG 812 ==
LOC: MED 00:38 → MTU 02:27
PROVIDERS: ADMIT General Practice; ATTEND General Practice
DX: T43.621A Poisoning by amphetamines, accidental (unintentional), initial encounter (principal); G92 Toxic encephalopathy; S72.002A Fracture of unspecified part of neck of left femur, initial encounter for closed fracture; I10 Essential (primary) hypertension; F15.10 Other stimulant abuse, uncomplicated; F17.210 Nicotine dependence, cigarettes, uncomplicated; J45.909 Unspecified asthma, uncomplicated; W18.30XA Fall on same level, unspecified, initial encounter; Y93.89 Activity, other specified; Y92.488 Other paved roadways as the place of occurrence of the external cause; Y99.8 Other external cause status; Z91.14 Patient's other noncompliance with medication regimen; Z71.51 Drug abuse counseling and surveillance of drug abuser; Y92.89 Other specified places as the place of occurrence of the external cause
CPT/HCPCS: 36415; 70450; 73502; 80048; 80053; 80305; 81003; 82140; 83036; 83690; 83735; 84100; 84134; 84443; 84702; 85025; 85610; 85730; 87081; 93005; 94640; 96361; 96374; 96375; 99285; G0482; J0360; J1644; J2060; J2270; J2405; J3010; J7030; J7620

== ENCOUNTER 2019-10-09 14:24 | Inpatient (IN) | payer MEDICAID ==
[~2019-10-09] VITALS: Ht 160 cm; Wt 57.6 kg
[~2019-10-09 14:24] MED LIST: METO25TA PO
[2019-10-09 20:00] VITALS: BP 133/74
--- NOTE | 2019-10-09 20:00 | NUR ---
PATIENT ARRIVED AT UNIT VIA GURNEY IN STABLE CONDITION. IV SITE TO RIGHT FOREARM 20G PATENT/INTACT. ALERT AND ORIENTED, ABLE TO MAKE NEEDS KNOWN. DX S/P LEFT HIP ORIF. HEMOVAC NOTED TO LEFT HIP INTACT. PATIENT ON ROOM AIR WITH NO SOB NOTED. RESPIRATIONS EVEN, UNLABORED. ABDOMEN SOFT, NONTENDER. INITIAL ASSESSMENT DONE. SAFETY PRECAUTIONS IN PLACE. BED IN LOWEST POSITION. CALL LIGHT WITHIN REACH. WILL CONTINUE TO MONITOR.
[2019-10-09] MEDS ORDERED: ONDANSETRON 4 MG/2 ML VIAL IVP PRN (20:15)
[2019-10-09] MEDS ORDERED: ACETAMINOPHEN 325 MG TAB PO PRN (20:15)
[2019-10-09] MEDS ORDERED: HYDROmorphone 1 MG/ML AMP IVP PRN (20:15)
[2019-10-09] MEDS ORDERED: MORPHINE SULFATE 4 MG/ML SYR IVP PRN (20:30)
[2019-10-09] MEDS: ZOLPIDEM 5 MG TAB PO PRN (21:17)
[2019-10-09] MEDS: DOCUSATE SODIUM 100 MG GELCAP PO SCH (21:17)
[2019-10-09] MEDS: HYDROcodone/APAP 7.5/325 MG 1 TAB PO PRN (21:20)
--- NOTE | 2019-10-09 21:20 | NUR ---
MEDICATED FOR ACHING LEFT HIP PAIN 03/12 ORDERED. CALL LIGHT WITHIN REACH. WILL CONTINUE TO MONITOR.
[2019-10-09 21:30] LABS: CREATININE 0.7 mg/dL (0.6-1.3)
[2019-10-09 21:50] LABS: PROTHROMBIN TIME 8.6 secs (10.8-13.4)
[2019-10-09 22:00] LABS: MAGNESIUM 1.8 mg/dL (1.8-2.4); PHOSPHORUS 3.7 mg/dL (2.5-4.9); THYROID STIMULATING HORMONE 2.22 uIU/mL (0.34-3.74)
--- NOTE | 2019-10-09 22:20 | NUR ---
REASSESSED PAIN, PATIENT IS CURRENTLY ASLEEP. NO S/SX ACUTE DISTRESS. CALL LIGHT WITHIN REACH. WILL CONTINUE TO MONITOR.
--- NOTE | 2019-10-09 23:16 | NUR ---
PATIENT C/O LEFT HIP PAIN 04/11. MEDICATED ORDERED. CALL LIGHT WITHIN REACH WILL CONTINUE TO MONITOR.
[2019-10-09 23:49] LABS: BARBITURATE, URINE NEG. ng/ml (NEG <=200); BENZODIAZEPINE, URINE NEG. ng/mL (NEG <=200); CANNABINOID, URINE NEG. ng/mL (NEG <=50); COCAINE, URINE NEG. ng/mL (NEG <=300); OPIATE, URINE NEG. ng/mL (NEG <=2000); PHENCYCLIDINE SCREEN,URINE NEG. ng/mL (NEG <=25)
[2019-10-09 23:51] LABS: APPEARANCE,URINE CLEAR (CLEAR); BILIRUBIN,URINE NEGATIVE (NEGATIVE); BLOOD, URINE NEGATIVE (NEGATIVE); COLOR,URINE YELLOW (YELLOW); LEUKOCYTE ESTERASE ,URINE NEGATIVE (NEGATIVE); NITRITE, URINE NEGATIVE (NEGATIVE); PH,URINE 6.5 (5.0-9.0); UGLUCOSE NEGATIVE (NEGATIVE)
--- NOTE | 2019-10-10 00:16 | NUR ---
PATIENT ASLEEP. NO S/SX ACUTE DISTRESS. CALL LIGHT WITHIN REACH. WILL CONTINUE TO MONITOR.
[2019-10-10 00:18] LABS: BASOPHILS # (AUTO) 0.1 K/uL (0.00-0.22); EOSINOPHILS # (AUTO) 0.2 K/uL (0-0.4); EOSINOPHILS % (AUTO) 2.2 % (0.0-4.0); HEMATOCRIT 33.1 % (36-48); HEMOGLOBIN 10.7 g/dL (12.0-16.0); LYMPHOCYTES # (AUTO) 2.4 K/uL (2.5-16.5); LYMPHOCYTES % (AUTO) 26.3 % (20.5-51.1); MEAN CORPUSCULAR HEMOGLOBIN 29 pg (27-31); MEAN CORPUSCULAR HGB CONC 32 g/dL (33-37); MEAN CORPUSCULAR VOLUME 89.4 fL (80-94); MONOCYTES # (AUTO) 0.7 K/uL (0.8-1.0); MONOCYTES % (AUTO) 7.5 % (1.7-9.3); NEUTROPHILS # (AUTO) 5.9 K/uL (1.8-7.7); PLATELET COUNT (AUTO) 351 K/uL (140-450); RED BLOOD CELL COUNT(AUTO) 3.71 MIL/uL (4.20-5.40); RED CELL DISTRIBUTION WIDTH 15.3 % (11.6-13.7); WHITE BLOOD COUNT (AUTO) 9.3 K/uL (4.8-10.8)
[2019-10-10] MEDS ORDERED: LORazepam 1 MG TAB PO ONE (02:00)
--- NOTE | 2019-10-10 02:00 | NUR ---
MEDICATED WITH ATIVAN 1 MG X1 FOR INCREASED ANXIETY. PATIENT RESTING IN BED EATING JELLO. CALL LIGHT WITHIN REACH. WILL CONTINUE TO MONITOR.
[2019-10-10] MEDS: MORPHINE SULFATE 4 MG/ML SYR IVP PRN ×5 (02:27→21:01)
--- NOTE | 2019-10-10 02:27 | NUR ---
PATIENT C/O ACHING LEFT HIP PAIN 04/11. MEDICATED ORDERED. CALL LIGHT WITHIN REACH. WILL CONTINUE TO MONITOR.
--- NOTE | 2019-10-10 03:27 | NUR ---
REASSESSED PATIENT'S PAIN LEVEL. PATIENT IS ASLEEP. NO S/SX ACUTE DISTRESS. CALL LIGHT WITHIN REACH. WILL CONTINUE TO MONITOR.
--- NOTE | 2019-10-10 05:40 | NUR ---
PATIENT C/O ACHING LEFT HIP PAIN 04/11. MEDICATED ORDERED. CALL LIGHT WITHIN REACH. WILL CONTINUE TO MONITOR.
--- NOTE | 2019-10-10 07:20 | NUR ---
RECEIVED BEDSIDE REPORT FROM ELECTRICIANS TOP HELPER NURSE. PT IS ASLEEP, NO S/S OF DISTRESS. NO SOB. PT IS ON ROOM AIR. L HIP DRESSING AND HEMOVAC IS INTACT. IV SITE R FA 20 G, SALINE LOCKED. FALL PRECAUTIONS IN PLACE. CALL LIGHT IS WITHIN REACH. WILL CONTINUE TO MONITOR.
--- NOTE | 2019-10-10 07:32 | NUR ---
ENDORSED PT TO DAY SHIFT NURSE BIANCA RN, PT STABLE, NO DISTRESS NOTED, CALL LIGHT WITHIN REACH.
[2019-10-10 08:00] VITALS: BP 133/93
--- NOTE | 2019-10-10 08:09 | NUR ---
PATIENT HAS BEEN SCREENED AND CATEGORIZED LOW NUTRITION RISK. PATIENT WILL BE SEEN WITHIN 7 DAYS OF ADMISSION. 10/16/[address]
--- NOTE | 2019-10-10 08:20 | NUR ---
PT SEEN BY DR YOUNG.
[2019-10-10] MEDS: ENOXAPARIN 40 MG/0.4 ML SYR SUBQ SCH (09:23)
[2019-10-10] MEDS: ASPIRIN 81 MG TAB.CHEW PO SCH (09:25)
[2019-10-10] MEDS: DOCUSATE SODIUM 100 MG GELCAP PO SCH ×2 (09:26→21:00)
[2019-10-10] MEDS: LISINOPRIL 5 MG TAB PO SCH (09:26)
[2019-10-10] MEDS: GABAPENTIN 300 MG CAP PO SCH ×3 (09:26→17:21)
[2019-10-10] MEDS: FAMOTIDINE 20 MG TAB PO SCH (09:26)
--- NOTE | 2019-10-10 09:30 | NUR ---
AM MEDS ADMINISTERED, PT TOLERATED WELL. PT C/O 06/12 LLE PAIN, PRN IV MORPHINE ADMINISTERED. WILL REASSESS PAIN WITHIN AN HOUR.
--- NOTE | 2019-10-10 10:02 | NUR ---
PT WALKING WITH PHYSICAL THERAPIST
--- NOTE | 2019-10-10 10:55 | NUR ---
DISCHARGE PLANNING: CONTACTED MARGUERITE SOLIS OF [facility] AT [phone] REGARDING INQUIRY. HE STATED TO FAX THE REFERRAL TO [phone] AND WILL RUN ELIGIBILITY. Addendum: 10/10/19 at 1432 by Nevin Modi CM MET WITH THE PATIENT AT THE BEDSIDE TO CONFIRM DEMOGRAPHICS. SHE STATED HER ADDRESS IS [address] [place] [address]. SHE STATED SHE LIVES AT HOME WITH HER VESTA BLAIR. WHEN ASKED FOR THE CONTACT INFORMATION, SHE STATED TO CALL [facility] (STORE CLOSE TO THEIR HOUSE). HOWEVER, WHEN ASKED IF SHE HAS THE PHONE NUMBER, SHE STARTED CRYING AND STATED "I HAVE TO GET THERE FIRST SO I CAN CALL YOU WITH THE NUMBER." I EXPLAINED IT TO HER THAT I CANNOT SET UP HOME HEALTH UNLESS I CAN PROVIDE THEM WITH CORRECT ADDRESS AND A LEGIT PHONE NUMBER. AND FROM THEN SHE COVERED HER FACE AND DID NOT WANT TO ANSWER ANY QUESTIONS ANYMORE. PER MARGUERITE SOLIS OF [facility], THEY ARE ABLE TO ACCEPT THE PATIENT. Addendum: 10/15/19 at 1056 by Nevin Modi CM RECEIVED A CALL FROM MARGUERITE SOLIS OF [facility] INFORMING ME THAT THEY TRIED TO SEND A CLINICIAN ON TUESDAY TO SEE THE PATIENT BUT APPARENTLY THE ADDRESS PROVIDED [address] [facility] IS NOT THE RIGHT ADDRESS. IT WAS THE ADDRESS OF THE PATIENT'S FRIEND WHO WAS HELPING THE PATIENT PRIOR TO HOSPITALIZATION AND THAT SHE DOES NOT LIVE THERE AND LIVES IN A PARK. THE CLINICIAN WENT DRIVING AROUND FOR 30 MINS TO LOCATE THE PATIENT BUT TO NOW AVAIL. HE PROVIDED ME WITH THE NUMBERS THAT THE PATIENT PROVIDED HIM. CONTACTED [phone], NO ANSWER. THE VOICEMAIL SAID DONNIE. LEFT A MESSAGE WITH MY CONTACT INFO. CONTACTED [phone], NO ANSWER. LEFT MESSAGE.
--- NOTE | 2019-10-10 11:32 | NUR ---
30 ML EMPTIED FROM PT'S HEMOVAC
--- NOTE | 2019-10-10 11:41 | NUR ---
SPOKE TO DR. MERRITT AND DR. SMITH, HEMOVAC DRAIN WITH 30ML OF SANGUINOUS DRAINAGE, LEFT HIP ORIF SURGICAL DRESSING DRY CLEAN AND IN PLACE, HEMOVAC ATTACHED AND FUNCTIONING. ORDER TO KEEP DRESSING AND DRAIN IN PLACE.
[2019-10-10] MEDS: HYDROcodone/APAP 7.5/325 MG 1 TAB PO PRN (15:41)
[2019-10-10 16:00] VITALS: BP 124/75
--- NOTE | 2019-10-10 16:51 | NUR ---
PT SEEN BY HOME HEALTH REP.
--- NOTE | 2019-10-10 17:15 | NUR ---
PT KEEPS ASKING FOR MORPHINE AND SNACKS/BEVERAGES AROUND THE CLOCK. PT WAS EDUCATED BY DR SMITH ABOUT THE RISKS OF TAKING MORPHINE TOO OFTEN, INCLUDING LOW BP. PT VERBALIZED UNDERSTANDING BUT STILL INSISTS ON GETTING MORPHINE SOON POSSIBLE, AND ALSO FREQUENTLY ASKING FOR SNACKS, JUICE, AND SANDWICHES.
--- NOTE | 2019-10-10 18:53 | NUR ---
EMPTIED OUT 5 ML FROM PT'S HEMOVAC
--- NOTE | 2019-10-10 19:15 | NUR ---
RECD. RESTING IN BED SLEEPING COMFORTABLY BUT EASILY AROUSABLE. IV SALINE LOCK AT THE RIGHT FOREARM G20, PATENT AND INTACT. RESPIRATION EVEN AND UNLABORED. SAFETY MEASURES ENFORCED. BED IN THE LOWEST POSITION. SIDE RAILS UP, BED ON ALARM, CALL LIGHT IN REACH. NO APPEARANCE OF PAIN NOTED 0/10.
--- NOTE | 2019-10-10 19:15 | NUR ---
ENDORSED PT TO RESEARCHER NURSE IN STABLE CONDITION
--- NOTE | 2019-10-10 19:25 | NUR ---
AWAKE, SITS ON THE BED, INCISION IN THE LEFT HIP COVERED WITH DRESSING, WITH HEMOVAC DRAINING SEROSANGUINEOUS FLUID, MODERATE AMOUNT. REQUESTING FOR SANDWICH AND JUICE.
--- NOTE | 2019-10-10 21:15 | NUR ---
REFUSED COLACE, STATED SHE HAD BM TODAY. EXPLAINED THAT THE MORPHINE THAT SHE IS GETTING CAN CAUSE CONSTIPATION THAT'S WHY SHE NEEDS TO TAKE COLACE, STILL REFUSED.
--- NOTE | 2019-10-10 22:15 | NUR ---
WENT OUT OF THE ROOM AND AMBULATED NEAR NURSES STATION USING WALKER, GAIT STEADY. ADVISED TO GO BACK TO BED. REQUESTED FOR SNACK.
[2019-10-10] MEDS: ZOLPIDEM 5 MG TAB PO PRN (23:31)
--- NOTE | 2019-10-10 23:31 | NUR ---
UNABLE TO SLEEP, MEDICATED WITH AMBIEN ORDERED.
[2019-10-10] MEDS: oxyCODONE 5 MG TAB PO PRN (23:34)
[2019-10-11] VITALS: BP 113/59
--- NOTE | 2019-10-11 00:30 | NUR ---
SLEEPING COMFORTABLY IN BD.
--- NOTE | 2019-10-11 01:29 | NUR ---
Patient's Plan of Care was discussed and reviewed with SCIENCE JOB TITLES: CHINO CONTRERAS LVN.
[2019-10-11 01:30] VITALS: BP 108/79
--- NOTE | 2019-10-11 01:35 | NUR ---
WOKE UP AND REQUESTED TO SNACK.
[2019-10-11] MEDS: MORPHINE SULFATE 4 MG/ML SYR IVP PRN ×2 (01:41→05:40)
--- NOTE | 2019-10-11 02:00 | NUR ---
SLEEPING COMFORTABLY IN BED.
--- NOTE | 2019-10-11 03:00 | NUR ---
WOKE UP AND ASK FOR SNACK, DEMANDING WANTS TO BE GIVEN ALWAYS WHAT SHE IS ASKING FOR SNACK.
--- NOTE | 2019-10-11 04:00 | NUR ---
SLEEPING COMFORTABLY IN BED.
[2019-10-11 05:15] VITALS: BP 113/59
[2019-10-11 06:49] LABS: BASOPHILS # (AUTO) 0.1 K/uL (0.00-0.22); BASOPHILS % (AUTO) 0.6 % (0.0-2.0); EOSINOPHILS # (AUTO) 0.2 K/uL (0-0.4); HEMATOCRIT 33.8 % (36-48); HEMOGLOBIN 11.2 g/dL (12.0-16.0); LYMPHOCYTES # (AUTO) 2.5 K/uL (2.5-16.5); LYMPHOCYTES % (AUTO) 20.6 % (20.5-51.1); MEAN CORPUSCULAR HEMOGLOBIN 29 pg (27-31); MEAN CORPUSCULAR HGB CONC 33 g/dL (33-37); MEAN CORPUSCULAR VOLUME 88.1 fL (80-94); MONOCYTES # (AUTO) 0.8 K/uL (0.8-1.0); MONOCYTES % (AUTO) 6.8 % (1.7-9.3); NEUTROPHILS # (AUTO) 8.5 K/uL (1.8-7.7); PLATELET COUNT (AUTO) 395 K/uL (140-450); RED BLOOD CELL COUNT(AUTO) 3.84 MIL/uL (4.20-5.40); RED CELL DISTRIBUTION WIDTH 15.2 % (11.6-13.7); WHITE BLOOD COUNT (AUTO) 12.2 K/uL (4.8-10.8)
--- NOTE | 2019-10-11 06:54 | NUR ---
RESTING COMFORTABLY IN BED. HEMOVAC EMPTIED, 1 ML OF SANGUINOUS FLUID.
--- NOTE | 2019-10-11 07:20 | NUR ---
RECEIVED BEDSIDE REPORT FROM DIETARY CLERK NURSE FOR CONTINUITY OF CARE. PT AWAKE AND RESTING ON BED AT THIS TIME. PT IS AAOX3 TO NAME PLACE AND TIME. RESPIRATION EVEN AND UNLABORED ON RA. DENIED PAIN, SOB, AND DIZZINESS AT THIS TIME. NO SIGNS OF DISTRESS NOTED. IV ON RFA 20G, CLEAN AND INTACT, SL. WOUND ON L HIP NOTED, ATTACHED TO WOUND VAC. PT IS ABLE TO AMBULATE WITH WALKER AND ASSIST. PT IS CONTINENT. DISCUSSED PLAN OF CARE WITH PT AND PT VERBALIZED OK. PT REQUIRED FOR MILK AND CRACKERS, WILL PROVIDE. SAFETY MEASURES IN PLACE. BED IN LOW POSITION AND CALL LIGHT WITHIN REACH. INSTRUCTED PT TO USE THE CALL LIGHT FOR ANY ASSISTANCE AND PT WAS AWARE.
[2019-10-11 08:00] VITALS: BP 102/65
[2019-10-11 08:08] LABS: FOLIC ACID 6.8 ng/mL (>3.0)
[2019-10-11 08:16] LABS: CREATININE 0.5 mg/dL (0.6-1.3); POTASSIUM 4.6 mmol/L (3.5-5.1)
[2019-10-11 08:17] LABS: PHOSPHORUS 4.3 mg/dL (2.5-4.9)
[2019-10-11 08:32] LABS: ANION GAP 9.5 (8-16); CARBON DIOXIDE 28.1 mmol/L (21-32)
[2019-10-11] MEDS: GABAPENTIN 300 MG CAP PO SCH ×3 (09:05→17:30)
[2019-10-11] MEDS: FAMOTIDINE 20 MG TAB PO SCH (09:05)
[2019-10-11] MEDS: ASPIRIN 81 MG TAB.CHEW PO SCH (09:05)
[2019-10-11] MEDS: DOCUSATE SODIUM 100 MG GELCAP PO SCH (09:05)
[2019-10-11] MEDS: LISINOPRIL 5 MG TAB PO SCH (09:06)
[2019-10-11] MEDS: ENOXAPARIN 40 MG/0.4 ML SYR SUBQ SCH (09:07)
[2019-10-11] MEDS: MORPHINE SULFATE 2 MG/ML SYR IVP PRN ×2 (09:08→12:51)
--- NOTE | 2019-10-11 09:09 | NUR ---
CHECKED BLOOD PRESSURE PRIOR TO MED ADMINISTRATION, RECEIVED 109/64 PULSE 109. ADMINISTERED SCHEDULED AM MEDS PER MD ORDER, MEDS EDUCATION PROVIDED AND PT VERBALIZED UNDERSTANDING. PT TOLERATED MEDS WELL. PT ALSO COMPLAINED SHE HAS 9/10 PAIN ON HER INCISION SITE, MEDICATED WITH PRN PAIN MED MORPHINE, MED ED PROVIDED AND PT TOLERATE WELL. PT AWAKE AND RESTING ON BED AT THIS TIME. DENIED SON, DIZZINESS, AND NAUSEA. NO SIGNS OF DISTRESS NOTED. SAFETY MEASURES IN PLACE. BED IN LOW POSITION AND CALL LIGHT WITHIN REACH. INSTRUCTED PT TO USE THE CALL LIGHT FOR ANY ASSISTANCE AND PT SAID OK.
--- NOTE | 2019-10-11 11:45 | NUR ---
PT IS RESTING ON BED AT THIS TIME. DENIED PAIN, SOB, AND DIZZINESS. NO SIGNS OF DISTRESS NOTED. SAFETY MEASURES IN PLACE. BED IN LOW POSITION AND CALL LIGHT WITHIN REACH. INSTRUCTED PT TO USE THE CALL LIGHT FOR ANY ASSISTANCE AND PT VERBALIZED UNDERSTANDING.
--- NOTE | 2019-10-11 12:52 | NUR ---
ADMINISTERED SCHEDULED MED PER MD ORDER, MED ED PROVIDED TO PT AND PT VERBALIZED UNDERSTANDING. PT COMPLAINED SHE HAS 9/10 PAIN ON HER INCISION SITE, MEDICATED WITH PRN PAIN MED MORPHINE, MED ED PROVIDED AND PT TOLERATE WELL. PT IS RESTING ON BED AT THIS TIME. DENIED SON, DIZZINESS, AND NAUSEA. NO SIGNS OF DISTRESS NOTED. SAFETY MEASURES IN PLACE. BED IN LOW POSITION AND CALL LIGHT WITHIN REACH. INSTRUCTED PT TO USE THE CALL LIGHT FOR ANY ASSISTANCE AND PT VERBALIZED OK.
--- NOTE | 2019-10-11 13:02 | NUR ---
ASSESSED INCISION SITE, DRESSING DRY AND INTACT, PT STATED PAIN 9/10, ALREADY MEDICATED. EMPTIED < 5 ML DRAINAGE FROM HEMOVAC. PT IS RESTING ON BED AT THIS TIME. NO SIGNS OF DISTRESS NOTED. SAFETY MEASURES IN PLACE. BED IN LOW POSITION AND CALL LIGHT WITHIN REACH. INSTRUCTED PT TO USE THE CALL LIGHT FOR ANY ASSISTANCE AND PT SAID OK.
[2019-10-11] MEDS ORDERED: GABA-638 PO (14:00)
[2019-10-11] MEDS ORDERED: FERR325E14 PO (14:00)
[2019-10-11] MEDS ORDERED: HYDR-5122 PO (14:00)
[2019-10-11] MEDS: oxyCODONE 5 MG TAB PO PRN (15:05)
--- NOTE | 2019-10-11 15:05 | NUR ---
PREMEDICATED FOR PAIN PRIOR TO REMOVE HEMOVAC. PT AWAKE AND RESTING ON BED. NO SIGNS OF DISTRESS NOTED.
--- NOTE | 2019-10-11 15:20 | NUR ---
REMOVED HEMOVAC, PT TOLERATED WELL. WOUND PICTURES TAKEN AND COVERED WITH [place] DRESSING FOR SURGICAL STABLE. WOUND CARE EDUCATION PROVIDED AND PROVIDED DRESSING TO PT TO CHANGE AT HOME. PT VERBALIZED UNDERSTANDING.
[2019-10-11 16:00] VITALS: BP 113/68
--- NOTE | 2019-10-11 16:05 | NUR ---
[employer] DAY WORKER PROVIDED SHOES TO PT PER REQUEST. MATTRESS PACKER ASSISTED PT TO CHANGE INTO HER OWN CLOTHES. NO SIGNS OF DISTRESS NOTED. SAFETY MEASURES IN PLACE.
--- NOTE | 2019-10-11 17:30 | NUR ---
ADMINISTERED SCHEDULED MED PER MD ORDER, MED ED PROVIDED TO PATIENT AND PT SAID OK. PT TOLERATED WELL. PT CHANGED INTO HER OWN CLOTHES AND SITTING UP ON THE CHAIR BY HER DOOR. NO SIGNS OF DISTRESS NOTED.
--- NOTE | 2019-10-11 17:48 | NUR ---
PT IS HAVING DINNER AT THIS TIME. NO SIGNS OF DISTRESS NOTED. AWAITING FOR [facility] TO ARRIVE FOR SOFTWARE DESIGN ENGINEER.
--- NOTE | 2019-10-11 18:05 | NUR ---
DISCHARGE INSTRUCTION PROVIDED TO PT AT BEDSIDE. EDUCATED PT ON FOLLOW UP WITH MD, MEDICATIONS REGIMENS, SIDE EFFECTS, WOUND CARE AND DISEASE MANAGEMENT. ANSWERED ALL PT'S QUESTIONS AND PT WAS AWARE TO FOLLOW UP WITH MD AFTER DC. REMOVED IV, CANNULA INTACT AND NO BLEEDING AT IV SITE. REMOVED ALL ARM BANDS. SURGICAL WOUND/ KYMBERLY ON L HIP,PICTURES TAKEN. PROVIDED WOUND CARE SUPPLIES (DRESSING0. PRESCRIPTION PROVIDED TO PATIENT. PT REFUSED ALL VACCINATIONS AND EDUCATION PROVIDED. PT CHECKED ALL THE CABINETS AND TOOK ALL HER BELONGINGS HOME. [employer] WHEEL CHAIR PT TO THE FRONT LOBBY. PT IS GOING TO DC HOME. PT IS IN STABLE CONDITION.
[2019-10-12] MEDS ORDERED: LOV40I SUBQ (15:05)
[2019-10-12] MEDS ORDERED: ASPI-1884 PO (15:05)
== END 2019-10-11 16:05 | disposition home health service (06) | DRG 340 ==
LOC: MTU 19:55
PROVIDERS: ADMIT General Practice; ATTEND General Practice
DX: S72.002A Fracture of unspecified part of neck of left femur, initial encounter for closed fracture (principal); I21.A1 Myocardial infarction type 2; D64.9 Anemia, unspecified; F15.10 Other stimulant abuse, uncomplicated; I10 Essential (primary) hypertension; F17.210 Nicotine dependence, cigarettes, uncomplicated; X58.XXXA Exposure to other specified factors, initial encounter; Y93.89 Activity, other specified; Y92.89 Other specified places as the place of occurrence of the external cause; Y99.8 Other external cause status; Z91.14 Patient's other noncompliance with medication regimen
CPT/HCPCS: 36415; 71045; 80048; 80305; 81003; 82607; 82728; 82746; 83036; 83540; 83735; 83880; 84100; 84443; 84484; 85025; 85045; 85610; 85730; 87081; 93005; 97110; 97116; 97161-GP; 97530; J1650; J2270; Q0092